=== PATIENT | male | born 1940 | race Caucasian/White ===

== ENCOUNTER → 2022-11-21 | Emergency (ER) | payer OTHER ==
[~2022-11-21] VITALS: Ht 170.2 cm; Wt 90.7 kg
[~2022-11-21] MED LIST: ELIQUIS5 M1 PO; LABETALOL HCL200 MG PO; LASIX20 MG PO; LORADAMED10 MG PO; MONTELUKAST SODI4 M1; SIMVASTATIN5 MG PO; TAMS0.4C PO; ZYLOPRIM100 M1 PO
== END | disposition home or self-care (01) ==
LOC: ER 16:01
DX: R14.0 Abdominal distension (gaseous) (principal); I10 Essential (primary) hypertension; F10.20 Alcohol dependence, uncomplicated; K80.20 Calculus of gallbladder without cholecystitis without obstruction